=== PATIENT | male | born 1965 | race Caucasian/White ===

== ENCOUNTER 2021-06-09 15:35 | Inpatient (IN) | payer OTHER, MEDICAID, SELFPAY ==
[~2021-06-09] VITALS: Ht 172.7 cm; Wt 132.4 kg
[2021-06-09 15:43] VITALS: BP 124/72
--- NOTE | 2021-06-09 15:43 | NUR ---
BIBA TO BED 02
--- NOTE | 2021-06-09 15:50 | NUR ---
56 Y/O MALE BIBA FROM HOME C/O SYNCOPE. PER EMS PT WAS TAKING A SHOWER HAD LOC. NO TRAUMA OR INJURT NOTED. PT STATES 8/10 THROBBING HEADACHE PAIN. STATES NAUSEA AND LOSS OF APPETITE. MEDHX: GASTRIC BYPASS, COVID+ SINCE TUESDAY DILIP
--- NOTE | 2021-06-09 15:56 | NUR ---
DR PALENCIA AT BEDSIDE EXAMINING PT
[2021-06-09] MEDS ORDERED: ONDANSETRON 4 MG/2 ML VIAL IVP ONE (16:10)
[2021-06-09] MEDS ORDERED: MORPHINE SULFATE 2 MG/ML SYR IVP ONE (16:10)
[2021-06-09] MEDS ORDERED: NACL 0.9% 1,000 ML IV ONE (16:10)
--- NOTE | 2021-06-09 16:16 | NUR ---
XRAY AT BEDSIDE
--- NOTE | 2021-06-09 16:40 | NUR ---
SIMRAN AND BLOOD WORK COLLECTED, HANDED TO LAB CPT
[2021-06-09 16:41] LABS: BASOPHILS % (AUTO) 0.5 % (0.0-2.0); EOSINOPHILS % (AUTO) 0.5 % (0.0-4.0); HEMATOCRIT 37.1 % (36-52); HEMOGLOBIN 12.6 g/dL (12.0-18.0); LYMPHOCYTES # (AUTO) 0.6 K/uL (2.0-11.5); LYMPHOCYTES % (AUTO) 18.7 % (20.5-51.1); MEAN CORPUSCULAR HEMOGLOBIN 28 pg (27-31); MEAN CORPUSCULAR HGB CONC 34 g/dL (33-37); MEAN CORPUSCULAR VOLUME 83.5 fL (80-94); MONOCYTES # (AUTO) 0.2 K/uL (0.8-1.0); MONOCYTES % (AUTO) 7.3 % (1.7-9.3); NEUTROPHILS # (AUTO) 2.2 K/uL (1.8-7.7); PLATELET COUNT (AUTO) 177 K/uL (140-450); RED BLOOD CELL COUNT(AUTO) 4.44 MIL/uL (4.20-6.10)
--- NOTE | 2021-06-09 16:50 | NUR ---
O2 SATURATATION 88%, PT PLACED ON 2L Nasal Cannula. O2 SATURATION NOW 95%
--- NOTE | 2021-06-09 17:25 | NUR ---
+SIMRAN PORTER FROM LAB. CECILIA REYNOLDS INFORMED.
[2021-06-09] MEDS ORDERED: AZITHROMYCIN 500 MG in DEXTROSE 5% 250 ML IV ONE (17:40)
[2021-06-09] MEDS ORDERED: DEXAMETHASONE 10 MG/ML VIAL IVP ONE (17:40)
[2021-06-09] MEDS ORDERED: ASPIRIN 325 MG TAB PO ONE (17:40)
[2021-06-09] MEDS ORDERED: cefTRIAXone 1,000 MG VIAL ONE (17:46)
[2021-06-09] MEDS ORDERED: AZITHROMYCIN 500 MG INJ VIAL IV ONE (17:46)
[2021-06-09] MEDS: NACL 0.9% 1,000 ML IV SCH (18:37)
[2021-06-09 18:43] LABS: APPEARANCE,URINE CLEAR (CLEAR); BILIRUBIN,URINE NEGATIVE (NEGATIVE); BLOOD, URINE NEGATIVE (NEGATIVE); COLOR,URINE YELLOW (YELLOW); LEUKOCYTE ESTERASE ,URINE NEGATIVE (NEGATIVE); NITRITE, URINE NEGATIVE (NEGATIVE); UGLUCOSE NEGATIVE (NEGATIVE)
--- NOTE | 2021-06-09 19:00 | NUR ---
PT EATING DINNER TRAY
--- NOTE | 2021-06-09 19:22 | NUR ---
REPORT RECEIVED FROM CECILIA REYNOLDS FOR CONTINUITY OF PT CARE AT THIS TIME.
--- NOTE | 2021-06-09 19:22 | NUR ---
Pt report given to JIM BROOKS. Transfer of care at this time.
[2021-06-09 20:21] LABS: CARBON DIOXIDE 24.3 mmol/L (21-32); CREATININE 1.4 mg/dL (0.6-1.3)
--- NOTE | 2021-06-09 21:00 | NUR ---
ALL DUE MEDS GIVEN MD ORDER. NO ADVERSE REACTION NOTED. CALL LIGHT WITHIN REACH. BED AT THE LOWEST POSITION. WILL CONTINUE TO MONITOR THE PT. Addendum: 06/14/21 at 0630 by Ayden Prajapati RN THIS SHOULD BE ON 06/13
[2021-06-09 21:01] LABS: ANION GAP 19.3 (8-16); POTASSIUM 4.6 mmol/L (3.5-5.1)
[2021-06-09] MEDS: HYDROcodone/APAP 5/325 MG 1 TAB TAB PO PRN (21:54)
--- NOTE | 2021-06-09 21:57 | NUR ---
PROVIDED PT W URINAL. PT REPORTS FEELING MUCH BETTER PT ATE SALAD, ASSISTED PT TO REPOSITION FOR COMFORT. PT DOES NOT NEED ANYTHING ELSE AT THIS TIME. VSS.
--- NOTE | 2021-06-09 22:22 | NUR ---
PT REPORTS FEELING A LITTLE WARM. PT TEMPORAL TEMP 97.9, PT PROVIDED W COOL PACK TO FOREHEAD FOR COMFORT.
[2021-06-09 22:51] LABS: ALBUMIN 3.5 g/dL (3.4-5.0); ANION GAP 18.4 (8-16); CARBON DIOXIDE 23.1 mmol/L (21-32); CREATININE 1.5 mg/dL (0.6-1.3); POTASSIUM 4.5 mmol/L (3.5-5.1); TOTAL BILIRUBIN 0.3 mg/dL (0.0-1.0)
--- NOTE | 2021-06-10 02:58 | NUR ---
PT PROVIDED W WATER AND BLANKET PER REQUEST. ALL NEEDS MET AT THIS TIME.
--- NOTE | 2021-06-10 03:31 | NUR ---
PT APPEARS TO BE RESTING W EYES CLOSED SUPINE POSITION. BED LOCKED INLOWEST POSITION W X2 SIDERAILS UP FOR PT SAFETY. BREATHING EVEN AND UNLABORED. VSS. NAD NOTED, WILL CONTINUE TO MONITOR.
--- NOTE | 2021-06-10 06:30 | NUR ---
PT LAYING SUPINE IN BED USING PHONE. NO COMPLAINTS. BREATHING EVEN AND UNLABORED. VSS. NAD NOTED WILL CONTINUE TO MONITOR.
--- NOTE | 2021-06-10 07:17 | NUR ---
Pt report given to CECILIA POLANCO. Transfer of care at this time.
--- NOTE | 2021-06-10 07:24 | NUR ---
ASSUMED PATIENT CARE 56 YEARS OLD MALE PRESENT TO ER WITH SYNCOPE, COVID POSITIVE, ALERT, ORIENTED X4 DENIES SOB CP, NO NAUSEA VOMITING WILL CONTINUE TO MONITOR AWAITING FOR BED.
[2021-06-10 09:11] LABS: BASOPHILS % (AUTO) 0.4 % (0.0-2.0); HEMATOCRIT 37.5 % (36-52); HEMOGLOBIN 12.6 g/dL (12.0-18.0); LYMPHOCYTES # (AUTO) 0.5 K/uL (2.0-11.5); LYMPHOCYTES % (AUTO) 19.9 % (20.5-51.1); MEAN CORPUSCULAR HEMOGLOBIN 28 pg (27-31); MEAN CORPUSCULAR HGB CONC 34 g/dL (33-37); MEAN CORPUSCULAR VOLUME 84.1 fL (80-94); MONOCYTES # (AUTO) 0.2 K/uL (0.8-1.0); MONOCYTES % (AUTO) 7.3 % (1.7-9.3); NEUTROPHILS # (AUTO) 1.9 K/uL (1.8-7.7); NEUTROPHILS % (AUTO) 72.4 % (42.2-75.2); PLATELET COUNT (AUTO) 168 K/uL (140-450); RED BLOOD CELL COUNT(AUTO) 4.46 MIL/uL (4.20-6.10); RED CELL DISTRIBUTION WIDTH 13.8 % (11.6-13.7); WHITE BLOOD COUNT (AUTO) 2.6 K/uL (4.8-10.8)
[2021-06-10] MEDS: NACL 0.9% 1,000 ML IV SCH (10:33)
[2021-06-10] MEDS: HYDROcodone/APAP 5/325 MG 1 TAB TAB PO PRN (11:39)
--- NOTE | 2021-06-10 11:40 | NUR ---
PATIENT C/O HEADACHE PRN NORCO GIVEN WILL CONTINUE TO MONITOR.
[2021-06-10] MEDS ORDERED: ALBUTEROL HFA MDI 90 MCG/ACTUATION 8 GM INH PRN (11:45)
[2021-06-10] MEDS ORDERED: MORPHINE SULFATE 2 MG/ML SYR IVP PRN (11:50)
[2021-06-10] MEDS ORDERED: LORazepam 2 MG/ML VIAL IM/IVP PRN (11:50)
[2021-06-10] MEDS ORDERED: ACETAMINOPHEN 325 MG TAB PO PRN (11:50)
[2021-06-10] MEDS ORDERED: POTASSIUM CHLORIDE 10 MEQ TABER PO PRN (11:50)
[2021-06-10] MEDS ORDERED: HYDROcodone/APAP 5/325 MG 1 TAB TAB PO PRN (11:50)
[2021-06-10] MEDS ORDERED: ZOLPIDEM 5 MG TAB PO PRN (11:50)
[2021-06-10] MEDS ORDERED: MAG SULF 2000 MG/WATER PREMIX 50 ML IV PRN (11:50)
[2021-06-10] MEDS ORDERED: DOCUSATE SODIUM 100 MG GELCAP PO PRN (11:50)
[2021-06-10] MEDS ORDERED: ONDANSETRON 4 MG/2 ML VIAL IM/IVP PRN (11:50)
[2021-06-10 12:44] LABS: THYROID STIMULATING HORMONE 0.4 uIU/mL (0.34-3.74)
[2021-06-10] MEDS ORDERED: remdesivir COMMUNICATION ORDER 1 EA MISC MC PRN ×3 (13:05)
[2021-06-10 13:29] LABS: ALBUMIN 3.3 g/dL (3.4-5.0); BILIRUBIN,DIRECT 0.1 mg/dL (0.0-0.3); TOTAL BILIRUBIN 0.3 mg/dL (0.0-1.0)
[2021-06-10] MEDS ORDERED: remdesivir CLINICAL MONITORING 1 EA MISC MC PRN (15:20)
--- NOTE | 2021-06-10 15:28 | NUR ---
PATIENT HAS BEEN SCREENED AND CATEGORIZED MODERATE NUTRITION RISK. PATIENT WILL BE SEEN WITHIN 3-5 DAYS OF ADMISSION. 06/10/21 06/14/[address] Addendum: 06/11/21 at [address] PATIENT HAS BEEN CATEGORIZED HIGH NUTRITION RISK D/T REFERRAL RECEIVED FOR VOMITING OVER 3 DAYS. PATIENT WILL BE SEEN WITHIN 1-2 DAYS OF ADMISSION. 06/11/[address]
[2021-06-10] MEDS ORDERED: REMDESIVIR. 200 MG in NACL 0.9% 100 ML IV SCH (16:00)
--- NOTE | 2021-06-10 16:32 | NUR ---
PATIENT RESTING NO SOB, DENIES HEADACHE, NO NAUSEA, VOMITING.
[2021-06-10] MEDS ORDERED: AZITHROMYCIN 250 MG in DEXTROSE 5% 250 ML IV SCH (17:00)
[2021-06-10] MEDS ORDERED: LOVENOX 1MG/KG Q12H SUBQ SCH (21:00)
[2021-06-10] MEDS: ENOXAPARIN 120 MG/0.8 ML SYR SUBQ SCH (21:00)
[2021-06-10] MEDS: ZINC SULF 220 MG CAP PO SCH (21:37)
--- NOTE | 2021-06-10 23:27 | NUR ---
Patient will be admitted to care of DR SILVEIRA. Admited to [facility]. Will go to room 116. Belongings list completed. Report to CECILIA MORFIN.
--- NOTE | 2021-06-10 23:30 | NUR ---
Received patient from the ER to be admitted on tele monitoring Status. Patient is AA&Ox4 able to make needs known, denies chest pain or SOB. Chest rise is even and unlabored with noted crackles. Normal heart sounds present. Active bowel sounds x4, denies pain with palpation. Reports a Head ache of 10/10. Patient was oriented to the room and how to use the call light for assistance. Admission assessment were completed. Bed is locked in the lowest position with bed rails up will continue to monitor throughout the shift.
[2021-06-11] VITALS (7 sets, daily range): BP systolic 106–143; BP diastolic 45–81
[2021-06-11] MEDS ORDERED: MECLIZINE 25 MG TAB PO PRN (01:40)
[2021-06-11] MEDS: NACL 0.9% 1,000 ML IV SCH ×2 (06:47→19:50)
[2021-06-11 07:13] LABS: BASOPHILS % (AUTO) 0.1 % (0.0-2.0); HEMATOCRIT 36.5 % (36-52); HEMOGLOBIN 12.4 g/dL (12.0-18.0); LYMPHOCYTES # (AUTO) 0.7 K/uL (2.0-11.5); LYMPHOCYTES % (AUTO) 20.8 % (20.5-51.1); MEAN CORPUSCULAR HEMOGLOBIN 28 pg (27-31); MEAN CORPUSCULAR HGB CONC 34 g/dL (33-37); MEAN CORPUSCULAR VOLUME 83.2 fL (80-94); MONOCYTES # (AUTO) 0.2 K/uL (0.8-1.0); MONOCYTES % (AUTO) 4.8 % (1.7-9.3); NEUTROPHILS # (AUTO) 2.7 K/uL (1.8-7.7); NEUTROPHILS % (AUTO) 74.3 % (42.2-75.2); PLATELET COUNT (AUTO) 179 K/uL (140-450); RED BLOOD CELL COUNT(AUTO) 4.39 MIL/uL (4.20-6.10); RED CELL DISTRIBUTION WIDTH 13.9 % (11.6-13.7); WHITE BLOOD COUNT (AUTO) 3.6 K/uL (4.8-10.8)
--- NOTE | 2021-06-11 07:20 | NUR ---
RECEIVE REPORT FROM WHEAT SHIPPER NURSE FOR CONTINUITY OF PATIENT CARE. PATIENT SLEEPING. NO ACUTE DISTRESS NOTED. PATIENT ON 4L NC. PATIENT O2 SATING AT 94%. CALL LIGHT WITHIN REACH. ALL SAFETY MEASURES IN PLACE. WILL CONTINUE TO MONITOR.
[2021-06-11 07:28] LABS: ALBUMIN 3.1 g/dL (3.4-5.0); ANION GAP 11.4 (8-16); CARBON DIOXIDE 28.4 mmol/L (21-32); CREATININE 1.3 mg/dL (0.6-1.3); MAGNESIUM 2.1 mg/dL (1.8-2.4); PHOSPHORUS 2.5 mg/dL (2.5-4.9); POTASSIUM 4.8 mmol/L (3.5-5.1); TOTAL BILIRUBIN 0.4 mg/dL (0.0-1.0)
[2021-06-11] MEDS: ZINC SULF 220 MG CAP PO SCH ×2 (08:15→22:06)
[2021-06-11] MEDS: ASCORBIC ACID 500 MG TAB PO SCH (08:15)
[2021-06-11] MEDS: VITAMIN D 400 IU TAB PO SCH (08:16)
[2021-06-11] MEDS: ENOXAPARIN 120 MG/0.8 ML SYR SUBQ SCH (08:16)
--- NOTE | 2021-06-11 08:30 | NUR ---
PATIENT AWAKE AND ALERT. NO ACUTE DISTRESS NOTED. PATIENT ON 4L NC SATING AT 94%. SCHEDULED MEDIATIONS GIVEN. US TECH AT BEDSIDE. CALL LIGHT WITHIN REACH. ALL SAFETY MEASURES IN PLACE .WILL CONTINUE TO MONITOR.
--- NOTE | 2021-06-11 09:57 | NUR ---
PATIENT AWAKE AND ALERT. NO ACUTE DISTRESS NOTED. PATIENT ON 4L NC SATING AT 94%. ASSISTED PATIENT TO BATHROOM.PATIENT REFUSED CAROTID ULTRASOUND. US TECH AT BEDSIDE. CALL LIGHT WITHIN REACH. ALL SAFETY MEASURES IN PLACE .WILL CONTINUE TO MONITOR.
--- NOTE | 2021-06-11 11:46 | NUR ---
PATIENT AWAKE AND ALERT. NO ACUTE DISTRESS NOTED. PATIENT ON 5L NC SATING AT 93%. CALL LIGHT WITHIN REACH. ALL SAFETY MEASURES IN PLACE .WILL CONTINUE TO MONITOR.
--- NOTE | 2021-06-11 12:52 | NUR ---
06/11/21 RD INITIAL ASSESSMENT COMPLETED PLEASE REFER TO NUTRITION ASSESSMENT UNDER CARE ACTIVITY FOR ESTIMATED NUTRITIONAL NEEDS. 1. CONTINUE REGULAR DIET TOLERATED 2. RECOMMEND ENSURE BID 3. RD TO FOLLOW-UP 3-5 DAYS, MODERATE RISK REVIEWED BY PAULINO BANSAL RD
--- NOTE | 2021-06-11 13:18 | NUR ---
PATIENT AWAKE AND ALERT. NO ACUTE DISTRESS NOTED. PATIENT ON 5L NC SATING AT 92%. ASSISTED PATIENT TO BEDSIDE COMMODE. CALL LIGHT WITHIN REACH. ALL SAFETY MEASURES IN PLACE .WILL CONTINUE TO MONITOR.
[2021-06-11] MEDS: REMDESIVIR. 100 MG in NACL 0.9% 100 ML IV SCH (14:45)
--- NOTE | 2021-06-11 15:24 | NUR ---
PATIENT AWAKE AND ALERT. NO ACUTE DISTRESS NOTED. PATIENT ON 6L NC SATING AT 92%. ASSISTED PATIENT TO BEDSIDE COMMODE. CALL LIGHT WITHIN REACH. ALL SAFETY MEASURES IN PLACE .WILL CONTINUE TO MONITOR.
--- NOTE | 2021-06-11 17:17 | NUR ---
PATIENT SLEEPING. NO ACUTE DISTRESS NOTED. PATIENT ON 6L NC SATING AT 92%. CALL LIGHT WITHIN REACH. ALL SAFETY MEASURES IN PLACE .WILL CONTINUE TO MONITOR.
--- NOTE | 2021-06-11 19:25 | NUR ---
ENDORSED TO GEL COATER NURSE FOR CONTINUITY OF PATIENT CARE. PATIENT STABLE.
--- NOTE | 2021-06-11 19:30 | NUR ---
RECEIVED REPORT FROM RN DAYSHIFT NURSE AT BEDSIDE FOR CONTINUITY OF CARE, PT IN STABLE CONDITION.
--- NOTE | 2021-06-11 20:00 | NUR ---
PT IN BED AOX4 ON 6 LITERS 02 VIA N/C. HE HAS A LAC 20G RUNNING NORMAL SALINE AT 60MLS/HR AND A RIGHT HAND 22G SALINE LOCKED. PT DENIES ANY PAIN OR SOB AT THIS TIME. V/S FOLLOWS: T 97.4 P 79 R 20 B/P 106/45 02 93 WITH 6 LITERS VIA N/C.
--- NOTE | 2021-06-11 21:30 | NUR ---
PT GIVEN ORDERED ZINC OXIDE 220MG CAPSULE TO BOOST IMMUNITY. EXPLAINED TO PT PURPOSE OF ORDERED MEDICATION, PT VERBALIZED ACKNOWLEDGMENT. ALL REQUESTED NEEDS ATTENDED BY STAFF AND ALL ORDERED PRECAUTIONS IN PLACE.
--- NOTE | 2021-06-11 23:00 | NUR ---
ROUNDS DONE, PT IN BED, HE REMAINS ON 6 LITERS VIA N/C. NO C/O VOICED ALL REQUESTS ATTENDED BY STAFF AND ALL UNIVERSAL FALLS PRECAUTIONS IN PLACE.
[2021-06-12] VITALS: BP 113/52
--- NOTE | 2021-06-12 00:30 | NUR ---
PT IN BED NO C/O VOICED NO S/S OF SOB V/S FOLLOWS: T 97.7 P 75 R 20 B/P 113/52 02 91% WITH 6 LITERS VIA N/C. ALL ORDERED PRECAUTIONS IN PLACE.
--- NOTE | 2021-06-12 02:00 | NUR ---
PT WAS OFF TELE CHECKED AND REPLACED LEAD THAT WAS OFF, PT SLEEPING IN BED 02 WAS 92% ON 6 LITERS VIA N/C. ALL ORDERED PRECAUTIONS IN PLACE.
[2021-06-12 04:00] VITALS: BP 111/70
--- NOTE | 2021-06-12 04:00 | NUR ---
PT ASSISTED WITH AM CARE HE VOIDED X2 DURING SHIFT. IV FLUIDS RUNNING ORDERED. V/S IN NORMAL LIMITS. 02 IS 88% ON 6 LITERS. WILL INFORM RT AND MONITOR 02. ALL ORDERED PRECAUTIONS IN PLACE.
--- NOTE | 2021-06-12 06:05 | NUR ---
PT IN BED RESTING 02 WENT BACK UP TO 6 LITERS VIA N/C. ALL ORDERED PRECAUTIONS IN PLACE.
[2021-06-12 06:44] LABS: BASOPHILS % (AUTO) 0.1 % (0.0-2.0); HEMOGLOBIN 12.1 g/dL (12.0-18.0); LYMPHOCYTES # (AUTO) 0.5 K/uL (2.0-11.5); MEAN CORPUSCULAR HEMOGLOBIN 28 pg (27-31); MEAN CORPUSCULAR HGB CONC 34 g/dL (33-37); MEAN CORPUSCULAR VOLUME 83.8 fL (80-94); MONOCYTES # (AUTO) 0.3 K/uL (0.8-1.0); NEUTROPHILS # (AUTO) 2.4 K/uL (1.8-7.7); NEUTROPHILS % (AUTO) 73.9 % (42.2-75.2); PLATELET COUNT (AUTO) 192 K/uL (140-450); RED BLOOD CELL COUNT(AUTO) 4.29 MIL/uL (4.20-6.10); RED CELL DISTRIBUTION WIDTH 13.8 % (11.6-13.7); WHITE BLOOD COUNT (AUTO) 3.3 K/uL (4.8-10.8)
[2021-06-12 07:19] LABS: ANION GAP 14.2 (8-16); CARBON DIOXIDE 25.7 mmol/L (21-32); CREATININE 1.1 mg/dL (0.6-1.3); MAGNESIUM 2.2 mg/dL (1.8-2.4); PHOSPHORUS 2.9 mg/dL (2.5-4.9); POTASSIUM 4.9 mmol/L (3.5-5.1); TOTAL BILIRUBIN 0.4 mg/dL (0.0-1.0)
--- NOTE | 2021-06-12 07:30 | NUR ---
RECEIVED REPORT FROM PM SHIFT RN FOR CONTINUITY OF CARE. PT. STABLE WITH NC 5LPM. ALERT,ORIENTED X4. ALL SAFETY MEASURES IN PLACED. WILL CONTINUE TO MONITOR THE PT.
[2021-06-12 08:00] VITALS: BP 110/73
--- NOTE | 2021-06-12 08:30 | NUR ---
NOTED PT'S O2 SATURATION WASLOW ABOUT 83% . CALLED AND NOTIFIED RT. RT CAME AND INCREASED O2 TO 20L/100%.WITH CHANGES PT. FEELING BETTER. ALL SAFETY MEASURES IN PLACED. CALL LIGHT WITHIN REACH. WILL CONTINUE TO MONITOR THE PT.
[2021-06-12] MEDS: VITAMIN D 400 IU TAB PO SCH (09:37)
[2021-06-12] MEDS: ZINC SULF 220 MG CAP PO SCH ×2 (09:37→21:00)
[2021-06-12] MEDS: ASCORBIC ACID 500 MG TAB PO SCH (09:38)
[2021-06-12] MEDS: ENOXAPARIN 40 MG/0.4 ML SYR SUBQ SCH (09:39)
--- NOTE | 2021-06-12 09:53 | NUR ---
PT. RESTING COMFORTABLY. NOT IN DISTRESS WITH NC 20L/100%. ADMINISTRED SCHEDULED MEDS. PT. TOLERATED WELL. WILL CONTINUE TO MONITOR THE PT.
[2021-06-12 12:00] VITALS: BP 112/85
[2021-06-12] MEDS: MISC ORAL TAB PO SCH (12:00)
--- NOTE | 2021-06-12 12:00 | NUR ---
PT. RESTING IN THE BED . MD 02 20L/100% . NOT IN DISTRESS. ALL SAFETY MEASURES IN PLACED. WILL CONTINUE TO MONITOR THE PT.
[2021-06-12] MEDS: NACL 0.9% 1,000 ML IV SCH ×2 (12:30→21:08)
--- NOTE | 2021-06-12 13:30 | NUR ---
ANSWERED CALL LIGHT.NOTED PIV ACCESS WAS OUT. TURNED OFF THE IV FLUID. .NO BLEEDING NOTED. DRY GAUZE APPLIED. WILL REINSERT PIV.PT. STABLE WITH O2 SUPPORT. ALL SAFETY MEASURES IN PLACED. CALL LIGHT WITHIN REACH. WILL CONT. TO MONITOR THE PT.
[2021-06-12] MEDS: REMDESIVIR. 100 MG in NACL 0.9% 100 ML IV SCH (14:00)
--- NOTE | 2021-06-12 15:37 | NUR ---
ANSWERED CALL LIGHT. HELP PT. WITH AMBULATION. TO USE URINAL. SPO2 MAINTAINING 99%. NO ACUTE DISTRESS NOTED. WILL CONTINUE TO MONITOR THE PT.
[2021-06-12 16:00] VITALS: BP 111/70
--- NOTE | 2021-06-12 18:00 | NUR ---
PT. SLEEPING IN THE BED COMFORTABLY, NO RESP. DISTRESS OBSERVED. WITH NC 20L/100%. ALL SAFETY MEASURES IN PLACED. CALL LIGHT WITHIN REACH. WILL CONTINUE TO MONITOR THE PT.
--- NOTE | 2021-06-12 19:54 | NUR ---
HANDOFF REPORT GIVEN TO PM SHIFT RN. PT. STABLE.
--- NOTE | 2021-06-12 19:55 | NUR ---
RECEIVED BEDSIDE REPORT FROM DAY SHIFT RN FOR CONTINUITY OF CARE. PT IS ON NC 20L SATING 94%. PT IS NOT IN ANY DISTRESS AND SHOWS NO SIGN OF SOB OR LABORED BREATHING. IVF RUNNING MD ORDER. CALL LIGHT WITHIN REACH. ALL SAFETY MEASURES TAKEN. WILL CONTINUE TO MONITOR THE PT.
[2021-06-12 20:00] VITALS: BP 104/51
--- NOTE | 2021-06-12 21:00 | NUR ---
ALL DUE MEDS GIVEN MD ORDER. NO ADVERSE REACTION NOTED. CALL LIGHT WITHIN REACH. BED AT THE LOWEST POSITION. WILL CONTINUE TO MONITOR THE PT.
--- NOTE | 2021-06-12 23:50 | NUR ---
PT IS SLEEPING IN BED. PT IS NOT IN ANY DISTRESS. NO SIGNS OF SOB. BREATHING RHYTHMIC AND SYMMETRICAL. IVF RUNNING MD ORDER. CALL LIGHT WITHIN REACH. ALL SAFETY MEASURES TAKEN. WILL CONTINUE TO MONITOR THE PT.
[2021-06-13] VITALS: BP 105/63
--- NOTE | 2021-06-13 01:50 | NUR ---
PT WAS DE-SATING WHILE USING THE URINAL. CALLED RT TO EVALUATE THE PT. PT IS DOING FINE NOW SATING AT 92%.
[2021-06-13 04:00] VITALS: BP 113/59
--- NOTE | 2021-06-13 04:06 | NUR ---
Pt received on high flow 20L 100%. Pt gets increased SOB very easily, but does well on HF. No changes made throughout shift.
--- NOTE | 2021-06-13 07:15 | NUR ---
ENDORSED PT TO DAY SHIFT NURSE FOR CONTINUITY OF CARE. PT IS STABLE.
--- NOTE | 2021-06-13 07:20 | NUR ---
Received report from pm nurse Alex. Patient asleep in bed, respirations even & nonlabored on O2 @ 20L/min via hiflow n/c. Call light within reach.
[2021-06-13 07:32] LABS: BILIRUBIN,DIRECT 0.1 mg/dL (0.0-0.3); TOTAL BILIRUBIN 0.4 mg/dL (0.0-1.0)
[2021-06-13 07:36] LABS: ANION GAP 13.3 (8-16); CARBON DIOXIDE 27.2 mmol/L (21-32); CREATININE 1.1 mg/dL (0.6-1.3); MAGNESIUM 2.2 mg/dL (1.8-2.4); PHOSPHORUS 2.9 mg/dL (2.5-4.9); POTASSIUM 4.5 mmol/L (3.5-5.1); TOTAL BILIRUBIN 0.4 mg/dL (0.0-1.0)
[2021-06-13 08:00] VITALS: BP 116/63
[2021-06-13] MEDS: VITAMIN D 400 IU TAB PO SCH (08:38)
[2021-06-13] MEDS: ZINC SULF 220 MG CAP PO SCH ×2 (08:38→20:16)
[2021-06-13] MEDS: ASCORBIC ACID 500 MG TAB PO SCH (08:38)
[2021-06-13] MEDS: ENOXAPARIN 40 MG/0.4 ML SYR SUBQ SCH (08:40)
--- NOTE | 2021-06-13 10:30 | NUR ---
Assisted patient to bedside commode. Patient's O2 sat decreases from 96% to 87% with minimal exertion with shortness of breath, on continuous O2 @ 25L/min via hiflow n/c. Patient requires frequent rest periods to complete transfer from bed to [facility] and vice versa. Shortness of breath resolves after 2-3 min of rest, O2sat increases back to 95-96%.
[2021-06-13 12:00] VITALS: BP 124/84
[2021-06-13] MEDS: MISC ORAL TAB PO SCH (12:00)
[2021-06-13 12:22] LABS: BASOPHILS % (AUTO) 0.2 % (0.0-2.0); HEMATOCRIT 36.4 % (36-52); HEMOGLOBIN 12.5 g/dL (12.0-18.0); LYMPHOCYTES # (AUTO) 0.7 K/uL (2.0-11.5); LYMPHOCYTES % (AUTO) 19.4 % (20.5-51.1); MEAN CORPUSCULAR HEMOGLOBIN 29 pg (27-31); MEAN CORPUSCULAR HGB CONC 34 g/dL (33-37); MONOCYTES # (AUTO) 0.4 K/uL (0.8-1.0); MONOCYTES % (AUTO) 11.6 % (1.7-9.3); NEUTROPHILS # (AUTO) 2.5 K/uL (1.8-7.7); NEUTROPHILS % (AUTO) 68.8 % (42.2-75.2); PLATELET COUNT (AUTO) 237 K/uL (140-450); RED BLOOD CELL COUNT(AUTO) 4.38 MIL/uL (4.20-6.10); RED CELL DISTRIBUTION WIDTH 13.9 % (11.6-13.7); WHITE BLOOD COUNT (AUTO) 3.7 K/uL (4.8-10.8)
[2021-06-13] MEDS: REMDESIVIR. 100 MG in NACL 0.9% 100 ML IV SCH (14:01)
[2021-06-13 16:00] VITALS: BP 111/68
--- NOTE | 2021-06-13 16:00 | NUR ---
Patient transferred from bed to chair with standby assist. On continuous O2 @ 25L/min via hiflow n/c. O2 sat decreased to 87% during transfer, then increased to 96% after 2-3 min of rest. No distress while sitting on chair at bedside.
--- NOTE | 2021-06-13 19:20 | NUR ---
RECEIVED REPORT FROM RN DAYSHIFT NURSE AT BEDSIDE FOR CONTINUITY OF CARE, PT IN STABLE CONDITION.A&O X 4. PT ON HI FLOW 25L/MIN O2 SAT AT 94%. ALL PRECAUTIONS IN PLACE. WILL CONTINUE TO MONITOR.
--- NOTE | 2021-06-13 19:47 | NUR ---
PT PRESENTS SITTING UP EATING DINNER, WATCHING TV, W/ NO SIGNS OF RESPIRATORY DISTRESS SATING 84% ON HFNC 25 LPM 100%. BS CLEAR/DIMINISHED THROUGHOUT. ENCOURAGED PT TO SELF PRONE TOLERATED AND DO NOT TAKE OFF HFNC. HE STATES HE FEELS BETTER. WILL CONTINUE TO MONITOR.
[2021-06-13 20:00] VITALS: BP 126/78
--- NOTE | 2021-06-13 21:00 | NUR ---
ALL DUE MEDS GIVEN MD ORDER. NO ADVERSE REACTION NOTED. CALL LIGHT WITHIN REACH. BED AT THE LOWEST POSITION. WILL CONTINUE TO MONITOR THE PT.
[2021-06-13] MEDS: NACL 0.9% 1,000 ML IV SCH (21:50)
--- NOTE | 2021-06-13 23:00 | NUR ---
PT ASLEEP. PT SATING AT 93%.NO DISTRESS NOTED. ALL PRECAUTIONS IN PLACE.CALL LIGHT WITHIN REACH. WILL CONTINUE TO MONITOR.
[2021-06-14] VITALS: BP 140/79
--- NOTE | 2021-06-14 01:15 | NUR ---
PT ASLEEP. PT SATING AT 94%.NO DISTRESS NOTED. ALL PRECAUTIONS IN PLACE.CALL LIGHT WITHIN REACH. WILL CONTINUE TO MONITOR.
--- NOTE | 2021-06-14 02:15 | NUR ---
PT SLEEPING IN SUPINE POSITION, SATING 92%. NO SIGNS OF RESPIRATORY DISTRESS BS CLEAR/DIMINISHED THROUGHOUT. WILL CONTINUE TO MONITOR.
--- NOTE | 2021-06-14 03:15 | NUR ---
PT ASKED ASSISTANCE TO BE SEATED. PT O2 SAT AT 90%. ALL PRECAUTIONS IN PLACE. WILL CONTINUE TO MONITOR.
[2021-06-14 04:00] VITALS: BP 121/58
--- NOTE | 2021-06-14 06:27 | NUR ---
PT IS STABLE. NO ACUTE EVENTS THROUGHOUT THE NIGHT. ALL NEEDS ATTENDED. NO S/SX OF DISTRESS NOTED. ALL PRECAUTIONS IN PLACE. WILL ENDORSE TO AM SHIFT NURSE.
--- NOTE | 2021-06-14 07:30 | NUR ---
RECEIVED REPORT FROM BREAD JOCKEY NURSE. PT IN BED, FLACC 0, NO RESPIRATORY DISTRESS
[2021-06-14 07:34] LABS: BASOPHILS % (AUTO) 0.4 % (0.0-2.0); EOSINOPHILS % (AUTO) 0.3 % (0.0-4.0); HEMOGLOBIN 12.3 g/dL (12.0-18.0); LYMPHOCYTES % (AUTO) 21.3 % (20.5-51.1); MEAN CORPUSCULAR HEMOGLOBIN 28 pg (27-31); MEAN CORPUSCULAR HGB CONC 34 g/dL (33-37); MEAN CORPUSCULAR VOLUME 82.6 fL (80-94); MONOCYTES # (AUTO) 0.5 K/uL (0.8-1.0); MONOCYTES % (AUTO) 9.6 % (1.7-9.3); NEUTROPHILS # (AUTO) 3.3 K/uL (1.8-7.7); NEUTROPHILS % (AUTO) 68.4 % (42.2-75.2); PLATELET COUNT (AUTO) 263 K/uL (140-450); RED BLOOD CELL COUNT(AUTO) 4.36 MIL/uL (4.20-6.10); RED CELL DISTRIBUTION WIDTH 13.8 % (11.6-13.7); WHITE BLOOD COUNT (AUTO) 4.8 K/uL (4.8-10.8)
[2021-06-14 07:43] LABS: MAGNESIUM 2.1 mg/dL (1.8-2.4)
[2021-06-14 07:55] LABS: MAGNESIUM 2.1 mg/dL (1.8-2.4)
[2021-06-14 08:00] VITALS: BP 120/83
[2021-06-14 08:11] LABS: CARBON DIOXIDE 24.4 mmol/L (21-32); POTASSIUM 4.4 mmol/L (3.5-5.1)
[2021-06-14 08:12] LABS: ALBUMIN 2.8 g/dL (3.4-5.0); TOTAL BILIRUBIN 0.4 mg/dL (0.0-1.0)
[2021-06-14] MEDS: VITAMIN D 400 IU TAB PO SCH (08:53)
[2021-06-14] MEDS: ZINC SULF 220 MG CAP PO SCH ×2 (08:53→20:07)
[2021-06-14] MEDS: ENOXAPARIN 40 MG/0.4 ML SYR SUBQ SCH (08:53)
[2021-06-14] MEDS: ASCORBIC ACID 500 MG TAB PO SCH (08:53)
--- NOTE | 2021-06-14 09:00 | NUR ---
DUE MEDS GIVEN TOLERATED WELL. ASSISTED TO CHAIR, WITH DESATURATION TO MID 80s UPON EXERTION. SLOWLY WENT UP TO 90s AT REST
[2021-06-14 09:14] LABS: ALBUMIN 2.8 g/dL (3.4-5.0); BILIRUBIN,DIRECT 0.2 mg/dL (0.0-0.3); TOTAL BILIRUBIN 0.5 mg/dL (0.0-1.0)
--- NOTE | 2021-06-14 11:00 | NUR ---
RECEIVED ON A VAPOTHERM HIGH FLOW NASAL CANNULA PLUGGED INTO RED OUTLET TOLERATING WELL WITHOUT ADVERSE REACTIONS NOTED LOC AWAKE AND ALERT VERBALLY RESPONSIVE SITTING UP IN CHAIR "WATCHING TV" SATURATION 97% ON FIO2 OF 100% TITRATED FIO2 TO 90% BLIND AIDE TO MONITOR AND TITRATED FIO2 NEEDED SABIHA/RN NOTIFIED
--- NOTE | 2021-06-14 11:12 | NUR ---
PATIENT REMAINS SITTING UP IN CHAIR ALERT AND AWAKE VERBALLY RESPONSIVE NO SOB NOTED GOOD CHEST RISE; VAPOTHERM HIGH FLOW NASAL CANNULA SATURATION 96% ON FIO2 OF 90% TITRATED FIO2 TO 85% STAFF FIELD ENGINEER TO MONITOR AND TITRATE FIO2 NEEDED SABIHA/RN NOTIFIED
[2021-06-14 12:00] VITALS: BP 119/73
[2021-06-14] MEDS: MISC ORAL TAB PO SCH (12:39)
[2021-06-14] MEDS: REMDESIVIR. 100 MG in NACL 0.9% 100 ML IV SCH (13:28)
--- NOTE | 2021-06-14 13:30 | NUR ---
PT SITTING IN CHAIR. NO RESPIRATORY DISTRESS
[2021-06-14] MEDS: NACL 0.9% 1,000 ML IV SCH (14:54)
[2021-06-14 16:00] VITALS: BP 100/50
--- NOTE | 2021-06-14 16:52 | NUR ---
ASLEEP ON LEFT SIDE NO DISTRESS NOTED GOOD CHEST RISE BREATH SOUNDS CLEAR APEX TO MID WITH RALES AT BILATERAL BASES SATURATION 97% ON FIO2 OF 85% TITRATED FIO2 TO 75% SABIHA/RN NOTIFIED
--- NOTE | 2021-06-14 19:10 | NUR ---
RECEIVED REPORT FROM DAY SHIFT NURSE AT BEDSIDE FOR CONTINUITY OF CARE, PT IN STABLE CONDITION.A&O X 4. PT ON HI FLOW 20L/MIN O2 SAT AT 94%. IV ON L FA G22 INFUSING WELL.ALL PRECAUTIONS IN PLACE. WILL CONTINUE TO MONITOR.
[2021-06-14 20:00] VITALS: BP 115/53
--- NOTE | 2021-06-14 21:00 | NUR ---
ALL DUE MEDS GIVEN MD ORDER. NO ADVERSE REACTION NOTED. CALL LIGHT WITHIN REACH. BED AT THE LOWEST POSITION. WILL CONTINUE TO MONITOR THE PT.
--- NOTE | 2021-06-14 22:46 | NUR ---
PT ASLEEP ON LEFT SIDE. PT SATING AT 93%.NO DISTRESS NOTED. ALL PRECAUTIONS IN PLACE.CALL LIGHT WITHIN REACH. WILL CONTINUE TO MONITOR.
[2021-06-15 01:00] VITALS: BP 118/77
--- NOTE | 2021-06-15 01:40 | NUR ---
PT ASLEEP. VISIBLE CHEST RISE AND FALL NOTED.O2 SAT 91%. CALL LIGHT WITHIN REACH. ALL PRECAUTIONS IN PLACE. WILL CONTINUE TO MONITOR
--- NOTE | 2021-06-15 03:15 | NUR ---
PT ASKED ASSISTANCE TO BE REPOSITIONED. ALL NEEDS MET. PT O2 SAT AT 91%. ALL PRECAUTIONS IN PLACE. WILL CONTINUE TO MONITOR.
[2021-06-15 04:00] VITALS: BP 112/63
--- NOTE | 2021-06-15 07:19 | NUR ---
ENDORSED TO AM SHIFT NURSE FOR CONTINUITY OF CARE. PT IS STABLE.
--- NOTE | 2021-06-15 07:30 | NUR ---
PATIENT RECEIVED FROM INSTRUCTOR PILOT NURSE. PT RESTING IN BED NO S/SX OF DISTRESS AT THIS TIME. PT ASSISTED TO DANGLING POSITION IN CHAIR PT TOLERATED WELL 02% 94% DURING EXERTION O2 AT 89% . PATIENT ASKED TO CALL BEFORE GOING BACK TO BED CALL LIGHT WITHIN REACH ALL BELONGINGS WITHIN REACH URINAL WITHIN REACH . ALL SAFETY MEASURES ARE IN PLACE.
[2021-06-15 07:47] LABS: BASOPHILS % (AUTO) 0.1 % (0.0-2.0); EOSINOPHILS % (AUTO) 0.7 % (0.0-4.0); HEMATOCRIT 35.3 % (36-52); LYMPHOCYTES # (AUTO) 1.2 K/uL (2.0-11.5); LYMPHOCYTES % (AUTO) 20.8 % (20.5-51.1); MEAN CORPUSCULAR HEMOGLOBIN 28 pg (27-31); MEAN CORPUSCULAR HGB CONC 34 g/dL (33-37); MEAN CORPUSCULAR VOLUME 82.9 fL (80-94); MONOCYTES # (AUTO) 0.6 K/uL (0.8-1.0); MONOCYTES % (AUTO) 9.7 % (1.7-9.3); NEUTROPHILS # (AUTO) 4.1 K/uL (1.8-7.7); NEUTROPHILS % (AUTO) 68.7 % (42.2-75.2); PLATELET COUNT (AUTO) 301 K/uL (140-450); RED BLOOD CELL COUNT(AUTO) 4.25 MIL/uL (4.20-6.10); RED CELL DISTRIBUTION WIDTH 13.8 % (11.6-13.7); WHITE BLOOD COUNT (AUTO) 5.9 K/uL (4.8-10.8)
[2021-06-15 08:00] VITALS: BP 113/57
[2021-06-15 09:05] LABS: ALBUMIN 2.9 g/dL (3.4-5.0); ANION GAP 11.3 (8-16); CARBON DIOXIDE 24.9 mmol/L (21-32); POTASSIUM 4.2 mmol/L (3.5-5.1); TOTAL BILIRUBIN 0.5 mg/dL (0.0-1.0)
--- NOTE | 2021-06-15 09:20 | NUR ---
MEDICATIONS GIVEN PER MD ORDER, PT EDUCATED AND VERBALIZED UNDERSTANDING, PT STILL IN DANGLING POSITION , 03% 96% . ALL SAFETY MEASURES ARE IN PLACE.
[2021-06-15] MEDS: NACL 0.9% 1,000 ML IV SCH ×2 (09:30→23:56)
[2021-06-15] MEDS: VITAMIN D 400 IU TAB PO SCH (09:33)
[2021-06-15] MEDS: ZINC SULF 220 MG CAP PO SCH ×2 (09:34→20:49)
[2021-06-15] MEDS: ASCORBIC ACID 500 MG TAB PO SCH (09:34)
[2021-06-15] MEDS: ENOXAPARIN 40 MG/0.4 ML SYR SUBQ SCH (09:35)
--- NOTE | 2021-06-15 10:38 | NUR ---
PTS EKG LEADS READJUSTED , PT TOLERATED WELL PT ASSISTED WITH CHANGING CLOTHES , ALL SAFETY MEASURES ARE IN PLACE.
[2021-06-15 12:00] VITALS: BP 127/80
[2021-06-15] MEDS: MISC ORAL TAB PO SCH (12:00)
--- NOTE | 2021-06-15 12:25 | NUR ---
PT GIVEN FOOD BROUGHT BY DAUGHTER , PATIENT DENIES N/V
--- NOTE | 2021-06-15 13:49 | NUR ---
MEDICATIONS GIVEN PER MD ORDER, NO S/SX OF DISTRESS AT THIS TIME , PATIENT SITTING 94% PT ATE FOOD BROUGHT BY DAUGHTER TOLERATED WELL ADMITS TO HAVING TASTE AT THIS TIME , DENIES COUGH , SOB CHEST PAIN OR BM. ALL SAFETY MEASURES ARE IN PLACE .
--- NOTE | 2021-06-15 14:04 | NUR ---
RECEIVED ON A VAPOTHERM HIGH FLOW NASAL CANNULA WITH COMPRESSOR ON PLUGGED INTO RED OUTLET TOLERATING WITHOUT COMPLICATIONS NOTED SITTING UP IN CHAIR NO RESPIRATORY DISTRESS NOTED GOOD CHEST RISE AIRWAY PATENT SATURATION 97% ON FIO2 OF 70% TITRATED FIO2 TO 60% MICHAEL/RN NOTIFIED
--- NOTE | 2021-06-15 15:25 | NUR ---
PATIENT RESTING IN BED, PATIENT REQUEST A RAZOR , NURSE FORM GRADER OPERATOR ASSISTED WITH REQUEST ALL SAFETY MEASURES IN PLACE.
[2021-06-15 16:00] VITALS: BP 103/67
--- NOTE | 2021-06-15 18:56 | NUR ---
PATIENT RESTING IN BED IN SITTING POSITION , PT REFUSED DINNER , ALL SAFETY MEASURES IN [PLACE.
--- NOTE | 2021-06-15 19:26 | NUR ---
PATIENT ENDORSED TO SANDING MACHINE TENDER FOR CONTINUITY OF CARE, ALL SAFETY MEASURES IN PLACE
--- NOTE | 2021-06-15 19:50 | NUR ---
Received patient from AM shift. Patient is AA&Ox4 able to make needs known, denies chest pain or SOB. Chest rise is even and unlabored on high flow O2. Normal hear sounds present. Active bowel sounds x4 on auscultation, denies pain with palpation. Patient denies any pain or discomfort at this time. IV line is present and patent on LFA infusing NS. Call light is within reach , bed is locked in the lowest position with bed rails up. Will continue to monitor throughout the shift.
[2021-06-15 20:00] VITALS: BP 120/67
--- NOTE | 2021-06-15 23:48 | NUR ---
ROUNDS: Patient is currently resting no s/s of distress is noted. Patient was off tele monitor so tele monitor were readjusted. Will continue to monitor.
[2021-06-16] VITALS: BP 103/54
[2021-06-16 04:00] VITALS: BP 105/67
--- NOTE | 2021-06-16 06:25 | NUR ---
Patient is currently resting no s/s of distress. Patient is able to communicate needs. All shift scheduled orders have been delivered and all current needs have been met. Call light is within reach, bed is locked in the lowest position with bed rails up. Will differ further care to AM shift nurse for continuity of care.
--- NOTE | 2021-06-16 07:23 | NUR ---
PATIENT IS RESTING IN BED COMFORTABLY NO S/SX OF DISTRESS AT THIS TIME. CALL LIGHT WITHIN REACH BED ALARM ON ALL BELONGINGS WITHIN REACH
[2021-06-16 08:00] VITALS: BP 138/63
[2021-06-16] MEDS: VITAMIN D 400 IU TAB PO SCH (08:22)
[2021-06-16] MEDS: ASCORBIC ACID 500 MG TAB PO SCH (08:22)
[2021-06-16] MEDS: ENOXAPARIN 40 MG/0.4 ML SYR SUBQ SCH (08:28)
--- NOTE | 2021-06-16 08:30 | NUR ---
MEDICATIONS GIVEN PER MD ORDER, PT EDUCATED AND VERBALIZED UNDERSTANDING ALL SAFETY MEASURES ARE IN PLACE.
--- NOTE | 2021-06-16 09:15 | NUR ---
PATIENT ASSISTED WITH COMMODE, PATIENT ATTEMPTED TO HAVE BM ONLY SMEAR, PT DESATURATED TO 88% GUIDED THROUGH RELAXATION TECHNIQUES , O2% 94 . PATIENT BACK IN BED RESTING ON RIGHT SIDE. ALL SAFETY MEASURES ARE IN PLACE.
--- NOTE | 2021-06-16 11:45 | NUR ---
MEDICATIONS GIVEN PER MD ORDER , PATIENT EDUCATED AND VERBALIZED UNDERSTANDING ALL SAFETY MEASURES ARE IN PLACE
[2021-06-16 12:00] VITALS: BP 106/61
[2021-06-16] MEDS: MISC ORAL TAB PO SCH (12:00)
--- NOTE | 2021-06-16 12:00 | NUR ---
PT CALLED REGARDING OXYGEN MACHINE , TIRE TESTER MACHINE TURNED ON , PT 95% , EXTRA BLANKET PROVIDED AND BED CHANGED PT TOLERATED WELL ALL SAFETY MEASURES ARE IN PLACE.
--- NOTE | 2021-06-16 12:00 | NUR ---
LUNCH GIVEN HEATED , PATIENT REFUSED FOOD STATED FAMILY MEMBER WILL BRING FOOD.
--- NOTE | 2021-06-16 12:11 | NUR ---
06/16/21 RD F/U COMPLETED PLEASE REFER TO NUTRITION ASSESSMENT UNDER CARE ACTIVITY FOR ESTIMATED NUTRITIONAL NEEDS. 1. CONTINUE REGULAR DIET TOLERATED 2. CONSIDER ENSURE BID 3. DIETARY WILL PROVIDE EARLY TRAY 4. RD TO FOLLOW-UP 3-5 DAYS, MODERATE RISK REVIEWED BY PAULINO BANSAL RD
--- NOTE | 2021-06-16 13:06 | NUR ---
PHYSICAL THERAPY CO-SIGN The Physical Therapy Progress Notes documented by Hearing Instrument Specialist have been reviewed. Reviewed/Co-Signed by: Lolly Carvajal Documentation Done by: EZRA KAISER PTA
--- NOTE | 2021-06-16 13:15 | NUR ---
PATIENT RESTING IN BED TOLERATED HOME FOOD WELL ALL SAFETY MEASURES ARE IN PLACE
--- NOTE | 2021-06-16 15:25 | NUR ---
PATIENT ASSISTED WITH COMMODE, ONE LARGE BM AT THIS TIME
[2021-06-16 16:00] VITALS: BP 111/65
[2021-06-16] MEDS: NACL 0.9% 1,000 ML IV SCH (17:21)
--- NOTE | 2021-06-16 17:52 | NUR ---
PATIENT RESTING IN BED TALKING ON PHONE NO S/SX OF DISTRESS AT THIS TIME
--- NOTE | 2021-06-16 19:25 | NUR ---
PATIENT ENDORSED FOR CONTINUITY OF CARE, PATIENT IN STABLE CONDITION
--- NOTE | 2021-06-16 19:26 | NUR ---
RECEIVED REPORT FROM AM NURSE. PATIENT IN BED AWAKE, RESTING WITH HI FLOW O2 AT 20L NC, FIO2 40 SATING AT 91%. NO ACUTE DISTRESS NOTED. RESPIRATION EVEN UNLABORED. SAFETY MEASURES IN PLACE. CALL LIGHT WITHIN REACH. NO COMPLAINTS OF PAIN AT THIS TIME. WILL CONTINUE TO MONITOR.
--- NOTE | 2021-06-16 19:48 | NUR ---
PT LAYING SUPINE POSITION IN BED WATCHING TV W/ NO SIGNS OF RESPIRATORY DISTRESS SATING 93% ON HFNC 20LPM 40%. BS CLEAR AT APICES DIM/CRS AT BASES. ENCOURAGED PT TO SELF PRONE AND NOT TO TAKE OFF NASAL CANNULA. WILL CONTINUE TO MONITOR.
[2021-06-16 20:00] VITALS: BP 116/63
--- NOTE | 2021-06-17 02:15 | NUR ---
ANSWERED CALL LIGHT, ATTENDED TO HIS NEEDS.
--- NOTE | 2021-06-17 04:00 | NUR ---
PATIENT REFUSED V/S. PT IS STABLE.
--- NOTE | 2021-06-17 06:30 | NUR ---
PATIENT CLEANED AND ATTENDED TO HIS NEEDS.
--- NOTE | 2021-06-17 07:22 | NUR ---
RECEIVED REPORT FROM PHOTOCOMPOSING MACHINE OPERATOR NURSE FOR CONTINUITY OF CARE, POC DISCUSSED. PT IS RESTING IN BED ON HIGH FLOW. PT IS SR ON TELE MONITOR. ALL SAFETY MEASURES IN PLACE. CALL LIGHT WITHIN REACH. WILL CONTINUE TO MONITOR.
--- NOTE | 2021-06-17 07:25 | NUR ---
ENDORSED TO AM NURSE FOR CONTINUITY OF CARE. PT IN STABLE CONDITION. BREATHING EVEN UNLABORED.
[2021-06-17 08:00] VITALS: BP 117/67
--- NOTE | 2021-06-17 08:47 | NUR ---
PHYSICAL THERAPY CO-SIGN The Physical Therapy Progress Notes documented by Postie have been reviewed. Reviewed/Co-Signed by: Lolly Carvajal Documentation Done by: EZRA KAISER PTA
[2021-06-17] MEDS: ENOXAPARIN 40 MG/0.4 ML SYR SUBQ SCH (09:03)
[2021-06-17] MEDS: NACL 0.9% 1,000 ML IV SCH (09:05)
--- NOTE | 2021-06-17 09:34 | NUR ---
DANIELLE MEDICATION ADMINISTERED PER MD ORDER. PT REPORTS "FEELING MUCH BETTER AND WANTING TO GO HOME" EDUCATION PROVIDED AND PT VERBALIZED UNDERSTANDING. PT STABLE
[2021-06-17 12:00] VITALS: BP 104/74
--- NOTE | 2021-06-17 12:04 | NUR ---
DANIELLE MEDICATION ADMINISTERED PER MD ORDER AND PT TOLERATED ADMINISTRATION. ALL SAFETY MEASURES IN PLACE.
[2021-06-17] MEDS: MISC ORAL TAB PO SCH (12:21)
--- NOTE | 2021-06-17 13:00 | NUR ---
BROUGHT PT BELONGINGS THAT WERE DROPPED OFF BY DAUGHTER IN FRONT LOBBY
--- NOTE | 2021-06-17 14:20 | NUR ---
DC PLANNING: THE PATIENT PRESENTED TO THE ED S/P DX OF COVID X 5 DAYS. SYNCOPAL EPISODE AT HOME, COVID RAPID POSITIVE. CXR SHOWS PERIHILAR OPACITIES, POSSIBLE ATYPICAL PNA. PATIENT STARTED ON REMDESIVIR, ROCEPHIN AND ZITHROMAX. HAS BEEN ON HIGH FLOW O2 SINCE 06/11, CURRENTLY ON VAPOTHERM AT 40%. PLAN FOR O2 WEANING TOLERATED, PATIENT CONTINUES ON DEXAMETHASONE AND IVF'S. GARCÍA LEFT VM FOR THE PATIENTS BELINDA ASKING FOR A CALL BACK TO DISCUSS DC NEEDS. GARCÍA WILL FOLLOW. Addendum: 06/17/21 at 1507 by Federica Butler CM DC PLANNING: GARCÍA SPOKE WITH THE PATIENTS BY PHONE. THE PATIENT LIVES IN A TWO STORY HOUSE WITH HIS AND IS NORMALLY INDEPENDENT IN ALL ACTIVITIES. THE PATIENTS IS ALSO COVID POSITIVE AND IS GETTING RETESTED TOMORROW. GARCÍA EXPLAINED THAT THE PATIENT WILL NEED HOME O2 AND MIGHT NEED HOME HEALTH P.T. AND THAT [facility] WILL BE CONTACTED FOR AUTH. GARCÍA LEFT A MESSAGE FOR KORI AT [facility] ASKING FOR THE CONTRACTED AGENCIES FOR O2 AND HOME HEALTH. GARCÍA WITH SPOKE WITH R.T. TO ASK FOR RA VALUES. CM WILL FOLLOW FOR NEEDS. Addendum: 06/18/21 at 1026 by Federica Butler CM DC PLANNING: PATIENT ON 3L NC TODAY, CM SPOKE WITH [facility] AND [facility], BOTH STATE THAT THEY CANNOT FIND THE PATIENT IN THEIR SYSTEMS. PATIENT REFERRAL FOR HOME O2 FAXED TO [facility], CM WILL FOLLOW UP FOR COVERAGE AND DELIVERY. Addendum: 06/18/21 at 1135 by Federica Butler CM DC PLANNING: CM CONFIRMED WITH [facility] THAT THEY WILL DELIVER CONCENTRATOR AND PORTABLE TANK TO THE PATIENTS RESIDENCE TODAY AND WILL CALL WITH ETA. MARIANO LEFT FOR THE PATIENTS CASI LETTING HER KNOW. CM WILL FOLLOW FOR NEEDS. Addendum: 06/18/21 at 1313 by Federica Butler CM DC PLANNING: O2 DELIVERY PENDING AUTH FROM [facility]. CM LEFT MESSAGES ON 2 DIFFERENT EXTENSIONS WITH [facility], ALSO FAXED ORDERS AND REQUEST. CM SPOKE WITH [facility] AND CONFIRMED THAT HE IS WITH THEM AND [facility], WILL WAIT FOR AUTH FOR O2 DELIVERY FROM [facility]. GARCÍA WILL CONTINUE TO FOLLOW. Addendum: 06/18/21 at 1415 by Federica Butler CM DC PLANNING: AUTH NUMBER FOR HOME 02 PER YOLANDA AT [facility] IS [id number]. NUMBER GIVEN TO LINNETTE AT [facility], SHE WILL HAVE SOMEONE CALL WITH ETA ON DELIVERY TO HOME. GARCÍA WILL FOLLOW FOR NEEDS. Addendum: 06/18/21 at 1604 by Federica Butler CM DC PLANNING: GARCÍA SPOKE WITH PRAFUL AT [facility], ETA FOR HOME DELIVER OF O2 IS 4-8 PM. GARCÍA ALSO SPOKE WITH THE PATIENTS CASI WHO ALSO RECEIVED A CALL FROM THEM. SHE WILL BRING THE PORTABLE O2 TO THE HOSPITAL FOR PATIENT DC TONIGHT. GARCÍA WILL FOLLOW.
--- NOTE | 2021-06-17 14:30 | NUR ---
ORDER COVID TEST OBTAINED LABELED
[2021-06-17 16:00] VITALS: BP 123/74
--- NOTE | 2021-06-17 17:26 | NUR ---
PLACED PT ON ROOM AIR AND PATIENT DESATURATED TO 85% FROM 97% ON 3L NC, PUT O2 BACK ON PATIENT AND WILL CONTINUE TO MONITOR. NO DISTRESS NOTED.
--- NOTE | 2021-06-17 18:50 | NUR ---
PT IS STABLE IN CHAIR SITTING UP, ON 3L NC. PT IS STABLE AND ALL NEEDS HAVE BEEN MET THROUGHOUT THE SHIFT.
--- NOTE | 2021-06-17 19:30 | NUR ---
RECEIVED REPORT FROM AM NURSE FOR CONTINUITY OF CARE. PT IS SITTING UP IN BED TALKING ON PHONE. NAD. ISO SIGNS ON DOOR. COVID+ ON O2 3L NC. O2SAT 94% ON ROOM AIR. SKIN INTACT. IV SITE LFA 22G. CALL LIGHT WITHIN REACH. ALL SAFETY MEASURES IN PLACE. WILL CONTINUE TO OBSERVE.
--- NOTE | 2021-06-17 19:30 | NUR ---
RECEIVED BEDSIDE REPORT FROM DAY RN. PT OBSERVED SITTING IN BED TALKING ON PHONE. RESPIRATIONS ARE EQUAL AND UNLABORED ON 3L VIA NC SAT WELL 94%. DX COVID +. ISO SIGN ON DOOR. PT IS AAOX4 ABLE TO MAKE NEEDS KNOWN. SKIN IS WARM, DRY AND INTACT. IV ON L FA 22G SL AT THIS TIME. POC REVIEWED WITH PT. CALL LIGHT IS WITHIN REACH. WILL CONTINUE TO MONITOR.
[2021-06-17 20:00] VITALS: BP 110/76
--- NOTE | 2021-06-17 20:00 | NUR ---
ASSISTED PATIENT TO BATHROOM. NO BM. PATIENT BACK IN BED TOLERATED WELL. SAT WELL 90%. ALL NEEDS MET. WILL CONTINUE TO MONITOR.
--- NOTE | 2021-06-17 20:30 | NUR ---
FREQ ROUNDS. AMBULATED TO BATHROOM WITH 1 PERSON ASSIST. VOIDED NO BM. BACK TO BED. TOLERATED ACTIVITY WELL. NO C/O PAIN. CALL LIGHT WITHIN REACH. ALL SAFETY MEASURES IN PLACE. WILL CONTINUE TO OBSERVE. REMAINS ON AIRBORNE ISOLATION COVID 19+.
--- NOTE | 2021-06-17 22:00 | NUR ---
JOSE ROUNDS. SPONGE BATH OFFERED. PT DECLINED. "I'M TOO COLD." RESTING IN BED. NAD. ALL SAFETY MEASURES IN PLACE. WILL CONTINUE TO OBSERVE.
[2021-06-18] VITALS: BP 112/72
--- NOTE | 2021-06-18 01:30 | NUR ---
FREQ ROUNDS. PT APPEARS TO BE SLEEPING. RR EVEN AND UNLABORED WITH EQUAL CHEST RISE. ALL SAFETY MEASURES IN [facility] CONTINUE TO OBSERVE.
[2021-06-18] MEDS: NACL 0.9% 1,000 ML IV SCH ×2 (01:50→18:45)
--- NOTE | 2021-06-18 03:30 | NUR ---
FREQ ROUNDS. PT UP TO BATHROOM. DENIES PAIN. NAD. RR EVEN AND UNLABORED WITH ACTIVITY. ALL SAFETY MEASURES N PLACE. CONTINUE TO MONITOR.
--- NOTE | 2021-06-18 04:55 | NUR ---
COLLECTED PCR NASAL SWAB. SENT TO LAB. PT TOLERATED IT WELL. WILL CONTINUE TO OBSERVE.
[2021-06-18 05:14] VITALS: BP 122/76
--- NOTE | 2021-06-18 07:20 | NUR ---
ENDORSED REPORT TO AM NURSE FOR CONTINUITY OF CARE.
--- NOTE | 2021-06-18 07:23 | NUR ---
RECEIVED REPORT FROM PLISSE MACHINE OPERATOR HELPER NURSE FOR CONTINUITY OF CARE. BREATHING SYMMETRICAL. NO S/S OF DISTRESS. CALL LIGHT IN REACH. ALL SAFETY MEASURES IN PLACE
--- NOTE | 2021-06-18 07:26 | NUR ---
PHYSICAL THERAPY CO-SIGN The Physical Therapy Progress Notes documented by Leg Man have been reviewed. Reviewed/Co-Signed by: Lolly Carvajal Documentation Done by: EZRA KAISER PTA Addendum: 06/18/21 at 6826 by Lolly Carvajal PT Amended: Links added.
[2021-06-18 08:00] VITALS: BP 119/78
[2021-06-18] MEDS: ENOXAPARIN 40 MG/0.4 ML SYR SUBQ SCH (10:00)
--- NOTE | 2021-06-18 10:00 | NUR ---
ALL SCHEDULED MEDICATIONS GIVEN PER MD ORDER. AWAKE, ALERT/ORIENTED X 4. RESPIRATION EVEN AND UNLABORED. ON O2 VIA NASAL CANNULA AT 2L. DENIES PAIN AT THIS TIME. ALL SAFETY MEASURES IN PLACE. CALL LIGHT WITHIN REACH.
[2021-06-18] MEDS ORDERED: ASPI-1205 PO (11:12)
[2021-06-18] MEDS ORDERED: [UNRECOGNIZED DRUG - CODE] PO (11:12)
[2021-06-18] MEDS ORDERED: DEXA6TAB1 PO (11:12)
[2021-06-18 12:00] VITALS: BP 113/78
[2021-06-18] MEDS: MISC ORAL TAB PO SCH (12:35)
--- NOTE | 2021-06-18 13:26 | NUR ---
PT WAS TITRATED TO 2L NC AT 1000. PT O2 SAT AT 96% WITH NO DROPS. WAITING FOR HOME O2 FOR DISCHARGE. NO S/S OF DISTRESS. CALL LIGHT IN REACH. ALL SAFETY MEASURES IN PLACE. 02 AT 2L NC
[2021-06-18 16:00] VITALS: BP 149/75
--- NOTE | 2021-06-18 16:30 | NUR ---
PT HOME O2 TO BE DELIVERED. NOTIFIED AND WILL BRING AT [facility]. ALL SAFETY MEASURES IN PLACE
--- NOTE | 2021-06-18 19:47 | NUR ---
ENDORSED PT TO BACK PAD INSPECTOR NURSE
--- NOTE | 2021-06-18 20:00 | NUR ---
RECEIVED BEDSIDE REPORT FROM DAY SHIFT RN FOR CONTINUITY OF CARE. PT IS AAOX4 ON NC 2L. PT IS SITTING ON HIS CHAIR DRESS UP READY TO BE DISCHARGE. WAITING FOR SON TO ONCOLOGY NAVIGATOR THE PT.
--- NOTE | 2021-06-18 20:55 | NUR ---
PT REFUSED VITALS DUE AT 1999. PT SON IS WAITING IN THE FRONT OF THE HOSPITAL. PT WAS WHEELED OUT SAFELY TO THE FRONT OF THE HOSPITAL WITH NO IV OR PATIENT WRIST BAND. PT HAS ALL BELONGINGS WITH HIM.
== END 2021-06-18 19:55 | disposition home or self-care (01) | DRG 720 ==
LOC: MED 15:35 → MTU 17:57
PROC: XW033E5 Introduction of Remdesivir Anti-infective into Peripheral Vein, Percutaneous Approach, New Technology Group 5 (ICD-10-PCS; principal; 2021-06-11)
DX: A41.89 Other specified sepsis (principal); N17.0 Acute kidney failure with tubular necrosis; J12.82 Pneumonia due to coronavirus disease 2019; U07.1 COVID-19; I49.3 Ventricular premature depolarization; E86.0 Dehydration; E66.9 Obesity, unspecified; R09.02 Hypoxemia; Z68.41 Body mass index [BMI] 40.0-44.9, adult
CPT/HCPCS: 36415; 70450; 71045; 80048; 80053; 80076; 81003; 82150; 82550; 83036; 83605; 83615; 83690; 83735; 84100; 84134; 84443; 84484; 85025; 85379; 85610; 85651; 85730; 86140; 87040; 87081; 93005; 93880; 96361; 96365; 96375; 97110; 97112; 97116; 97163-GP; 97530; 99291; J0456; J0696; J1100; J1650; J2270; J2405; J7060; Q0092; U0003